=== PATIENT | male | born 1950 | race Hispanic/Latino ===

== ENCOUNTER 2016-08-23 17:55 | Outpatient (CLI) | payer MEDICARE ==
[2016-08-23 19:38] LABS: ALT (SGPT) 25 U/L (0-55); AST (SGOT) 24 U/L (5-34); Alkaline Phosphatase 43 U/L (40-150); Anion Gap 16 mmol/L (10-20); BUN (Urea Nitrogen) 16 mg/dL (8.4-25.7); Bilirubin, Total 0.4 mg/dL (0.2-1.2); Calc. Creatinine Clearance 0 mL/min (70-130); Calcium 9.5 mg/dL (7.8-10.44); Carbon Dioxide 25 mmol/L (23-31); Chloride 103 mmol/L (98-107); Estimated GFR-MDRD 73; Globulin 3.2 g/dL (2.4-3.5); LDL Cholesterol, Calculated 80 mg/dL; Protein, Total 7.4 g/dL (5.8-8.1)
[2016-08-23 19:47] LABS: #Basophils 0.1 thou/uL (0.0-0.2); #Eosinphils 0.3 thou/uL (0.0-0.7); #Monocytes 0.7 thou/uL (0.11-0.59); #Neutrophils 4.3 thou/uL (1.40-6.50); %Eosinophils 3.6 % (0.0-10.0); %Monocytes 9.5 % (0.0-10.0); Hematocrit 45.2 % (42.0-52.0); Mean Platelet Volume 6.2 fL (7.4-10.4); Red Blood Cell (RBC) Count 4.79 mill/uL (4.70-6.10); White Blood Cell (WBC) Count 7.4 thou/uL (4.8-10.8)
[2016-08-24 18:38] LABS: Microalbumin Urine Less than 1.0 mg/dL (0.5-50.0)
== END 2016-08-23 17:56 | disposition home or self-care (01) ==
LOC: NAV SJFMSP 17:55
PROVIDERS: ATTEND Family Medicine
DX: E11.9 Type 2 diabetes mellitus without complications (principal)
CPT/HCPCS: 80053; 80061; 82043; 83036; 84439; 84443; 85025